=== PATIENT | female | born 1960 | race American Indian/Alaskan Native ===

== ENCOUNTER 2019-07-29 10:14 | Emergency (ER) | payer SELFPAY ==
--- NOTE | 2019-07-29 15:28 | Emergency Department Report ---
ED ENT HPI - General Chief complaint: Earache Stated complaint: RT EAR CLOGGED/PAIN Time Seen by Provider: 07/29/19 14:02 Source: patient Mode of arrival: Ambulatory Limitations: No Limitations - History of Present Illness Initial comments: This is a 58-year-old -[place] female who presents to the emergency room or right ear pain for 3 days. Patient states she washed her hair) and pain ever since. Patient also reports muffled hearing and ringing and right ear. MD complaint: ear pain (right) Onset/Timin -: days(s) Location: R ear Severity: moderate Severity scale (0 -10): 6 Quality: aching Consistency: constant Improves with: none Associated Symptoms: tinnitus, hearing loss. denies: fever, discharge from ear, rhinorrhea - Related Data Previous Rx's Medication Instructions Recorded Last Taken Type Neomy/Polymyx B/Hc (Otic) Soln 4 drops OD TID 7 Days #1 bottle 07/29/19 Unknown Rx [Cortisporin (Otic) Soln] ED Dental HPI - General Chief complaint: Earache Stated complaint: RT EAR CLOGGED/PAIN Time Seen by Provider: 07/29/19 14:02 Source: patient Mode of arrival: Ambulatory Limitations: No Limitations - Related Data Previous Rx's Medication Instructions Recorded Last Taken Type Neomy/Polymyx B/Hc (Otic) Soln 4 drops OD TID 7 Days #1 bottle 07/29/19 Unknown Rx [Cortisporin (Otic) Soln] ED Review of Systems ROS: Stated complaint: RT EAR CLOGGED/PAIN Other details as noted in HPI Constitutional: denies: chills, fever ENT: ear pain (right), hearing loss (right ear). denies: throat pain, congestion Respiratory: denies: cough, shortness of breath, wheezing Cardiovascular: denies: chest pain, palpitations Gastrointestinal: denies: abdominal pain, nausea, diarrhea Musculoskeletal: denies: back pain, joint swelling, arthralgia Skin: denies: rash, lesions Neurological: denies: headache, weakness, paresthesias Psychiatric: denies: anxiety, depression ED Past Medical Hx - Medications Home Medications: Home Medications Medication Instructions Recorded Confirmed Last Taken Type Neomy/Polymyx B/Hc (Otic) Soln 4 drops OD TID 7 Days #1 bottle 07/29/19 Unknown Rx [Cortisporin (Otic) Soln] ED Physical Exam - General Limitations: No Limitations General appearance: alert, in no apparent distress - ENT ENT exam: Present: mucous membranes moist, other (right tragus ttp, erythematous right ear canal, no drainage) - Neck Neck exam: Present: normal inspection - Respiratory Respiratory exam: Present: normal lung sounds bilaterally. Absent: respiratory distress - Cardiovascular Cardiovascular Exam: Present: regular rate, normal rhythm. Absent: systolic murmur, diastolic murmur, rubs, gallop - GI/Abdominal GI/Abdominal exam: Present: soft, normal bowel sounds - Neurological Exam Neurological exam: Present: alert, oriented X3 - Psychiatric Psychiatric exam: Present: normal affect, normal mood - Skin Skin exam: Present: warm, dry, intact, normal color. Absent: rash ED Course Vital Signs 07/29/19 10:29 Temperature 98.4 F Pulse Rate 87 Respiratory 18 Rate Blood Pressure 113/79 O2 Sat by Pulse 98 Oximetry ED Medical Decision Making - Medical Decision Making Patient is stable and was examined by me. Vitals normal. Right ear tragus ttp, erythematous ear canal, no discharge. Otitis externa of right ear. Start cortisporin otic drops. Discussed plan with patient and she agreed with plan. Referral to PCP for continued care. Discharged home in stable condition. Critical care attestation.: If time is entered above; I have spent that time in minutes in the direct care of this critically ill patient, excluding procedure time. ED Disposition Clinical Impression: Otalgia of right ear, Tinnitus of right ear Otitis externa Qualifiers: Otitis externa type: diffuse Chronicity: acute Laterality: right Qualified Code(s): H60.311 - Diffuse otitis externa, right ear Disposition: -01 TO HOME OR SELFCARE Is pt being admited?: No Condition: Stable Instructions: Otitis Externa (ED) Additional Instructions: Give Tylenol or ibuprofen for pain every 6-8 hours. Take antibiotics as prescribed to avoid recurrence of the ear infection. Avoid high altitudes, may worsen the pain during ear infection. If symptoms do not improve within 2 to 3 days, then follow up with Director Clinical Information Services. Prescriptions: Neomy/Polymyx B/Hc (Otic) Soln [Cortisporin (Otic) Soln] 4 drops OD TID 7 Days #1 bottle Referrals: [facility] [Outside] - 3-5 Days [facility] [Outside] - 3-5 Days [facility] [Outside] - 3-5 Days Forms: Work/School Release Form(ED) Time of Disposition: 15:32
[2019-07-29 15:45] VITALS: BP 118/74
== END 2019-07-29 15:44 | disposition home or self-care (01) ==
LOC: ED 10:14
DX: H60.311 Diffuse otitis externa, right ear (principal)
CPT/HCPCS: 99282